=== PATIENT | female | born 1970 | race African-American/Black ===

== ENCOUNTER 2017-11-01 13:32 | Outpatient (CLI) | payer OTHER | END 2017-11-01 13:33 | disposition home or self-care (01) | LOC: BICULT 13:32 | PROVIDERS: ATTEND Physician Assistant | DX: E07.9 Disorder of thyroid, unspecified (principal); E04.2 Nontoxic multinodular goiter | CPT/HCPCS: 76536 ==

== ENCOUNTER 2017-11-03 14:08 | Outpatient (CLI) | payer OTHER ==
--- NOTE | 2017-11-08 15:01 | MMO ---
BILATERAL SCREENING MAMMOGRAM: Date: 11/03/17 COMPARISON: 03/06/16, 02/20/16. HISTORY: Annual screening exam. This patient's mammogram was interpreted with the assistance of computer-aided detection. FINDINGS: The breasts are heterogeneously dense. On the MLO view of the right breast, in the more inferior portion of the breast is an area of nodular ity, margins of which are partially obscured. Difficult to definitely localize on the CC projection. It could be in the mid or outer portion of the right breast. It does appear slightly different as com pared to the prior exam. There are no suspicious calcifications or other signs of malignancy. Vascula r calcifications are noted. IMPRESSION: BIRADS 0: Incomplete: Need Additional Imaging Evaluation and/or Prior Mammograms for Comparison Further imaging required. In this case, focal spot views of the area marked within the right breast. If this can be substantiated on 2 views, then ultrasound may also be required. The facility will notify patient of need for additional imaging services. POS: MARTINE
== END 2017-11-03 14:09 | disposition home or self-care (01) ==
LOC: SCSMAMMO 14:08
PROVIDERS: ATTEND Physician Assistant
DX: Z12.31 Encounter for screening mammogram for malignant neoplasm of breast (principal)
CPT/HCPCS: 77067

== ENCOUNTER 2017-11-11 13:23 | Outpatient (CLI) | payer OTHER | END 2017-11-11 13:24 | disposition home or self-care (01) | LOC: BICMAMMO 13:23 | PROVIDERS: ATTEND Physician Assistant | DX: N63.10 Unspecified lump in the right breast, unspecified quadrant (principal); Z80.3 Family history of malignant neoplasm of breast | CPT/HCPCS: G0279 ==

== ENCOUNTER 2018-06-08 10:37 | Emergency (ER) | payer OTHER, SELFPAY ==
--- NOTE | 2018-06-08 12:25 | RAD ---
Right hip 2 views HISTORY: Right hip pain. FINDINGS: Mild joint space narrowing, osteophytosis, and subchondral sclerosis. Femoral head contours maintained. More prominent degenerative changes of the right sacroiliac joint. Large amount of stool over the rectum. IMPRESSION: Mild osteoarthritic changes of the right hip. More prominent degenerative changes of the right sacroiliac joint.
--- NOTE | 2018-06-08 12:26 | RAD ---
Right knee 4 views HISTORY: Right knee pain. FINDINGS: Joint spaces are preserved. Mild osteophytosis of the medial compartment. No acute fracture , dislocation, or fluid distention of the suprapatellar bursa. IMPRESSION: Mild degenerative changes. No acute osseous abnormalities are noted.
[2018-06-08] MEDS ORDERED: Ketorolac Tromethamine 60 MG/2 ML VIAL ONE (13:56)
== END 2018-06-08 16:36 | disposition home or self-care (01) ==
LOC: ERS 10:37
DX: M25.561 Pain in right knee (principal); M25.551 Pain in right hip; I10 Essential (primary) hypertension; Z79.899 Other long term (current) drug therapy
CPT/HCPCS: 96372; J1885

== ENCOUNTER 2018-07-11 08:21 | Outpatient (CLI) | payer OTHER ==
--- NOTE | 2018-07-11 12:08 | MRI ---
RIGHT KNEE MRI WITHOUT IV CONTRAST: HISTORY: Right knee pain, tear of medial meniscus right knee. FINDINGS: Multiplanar, multisequence MRI examination of the right knee is performed. Very large body habitus l owers the sensitivity of this study. Marked cartilage loss involving the patellar cartilage includin g the central and lateral patellar facet with some subchondral cystic changes. Moderate lateral messer llar subluxation. Lateral trochlear groove, cartilage loss. The medial and lateral menisci, anterio r and posterior cruciate ligaments, collateral ligament complexes, and quadriceps and patellar tendon s appear intact. No abnormal joint effusion. No abnormal marrow signal. No significant osteochondr al defect. IMPRESSION: Marked patellar cartilage loss with some subchondral cystic changes as well as cartilage loss of the lateral trochlear groove with moderate lateral patellar subluxation. No evidence for other significa nt acute internal derangement. Mild cartilage loss of the medial and lateral compartments. POS: [facility]
== END 2018-07-11 08:22 | disposition home or self-care (01) ==
LOC: BICMRI 08:21
PROVIDERS: ATTEND Orthopaedic Surgery
DX: S83.241A Other tear of medial meniscus, current injury, right knee, initial encounter (principal); S83.101A Unspecified subluxation of right knee, initial encounter

== ENCOUNTER 2018-12-19 10:43 | Emergency (ER) | payer OTHER ==
[2018-12-19 12:23] LABS: Bacteria/HPF None Seen HPF (None Seen); Bilirubin Negative (Negative); Blood, Urine 1+ (Negative); Clarity Clear (Clear); Glucose, Urine (Dipstick) Normal (Negative); Leukocyte Negative Leu/uL (Negative); Nitrite Negative (Negative); Protein, Urine (Dipstick) 30 mg/dL (Neg-Trace); Squamous Epithelial 0-3 HPF (0-3); WBC/HPF 0-3 HPF (0-3)
[2018-12-19] MEDS ORDERED: ISOVUE-370 76%-LOCM 1 ML ONE (12:23)
[2018-12-19 12:38] LABS: #Basophils 0.1 thou/uL (0.0-0.2); #Eosinphils 0.1 thou/uL (0.0-0.7); #Lymphocytes 2.4 thou/uL (1.20-3.40); #Monocytes 0.3 thou/uL (0.11-0.59); #Neutrophils 2.6 thou/uL (1.40-6.50); %Basophils 1.3 % (0.0-1.0); %Eosinophils 1.3 % (0.0-10.0); %Lymphocytes 43.8 % (21.0-51.0); %Monocytes 6.2 % (0.0-10.0); %Neutrophils 47.4 % (42.0-75.0); Hemoglobin 12.1 g/dL (12.0-16.0); Mean Corpuscular HGB CONC 30.3 g/dL (32.0-36.0); Mean Corpuscular Hemoglobin 21.5 pg (27.0-31.0); Mean Corpuscular Volume 70.8 fL (78.0-98.0); Mean Platelet Volume 9.9 fL (7.4-10.4); Platelet Count 307 thou/uL (130-400); RBC Distribution Width 13.4 % (11.5-14.5); Red Blood Cell (RBC) Count 5.62 mill/uL (4.20-5.40); White Blood Cell (WBC) Count 5.4 thou/uL (4.8-10.8)
[2018-12-19 12:53] LABS: Hypochromia SLIGHT = 6-15 cells (100X) (0-5/hpf); MDiff Complete? YES; Microcytosis SLIGHT = 6-15 cells (100X) (0-5/hpf); Ovalocytes SLIGHT = 2-5 cells (100X) (0-1/hpf); Platelet Morphology Comment Appears Adequate; Polychromasia SLIGHT = 2-3 cells (100X) (0-2/hpf)
[2018-12-19 13:01] LABS: ALT (SGPT) Less than 7 U/L (8-55); AST (SGOT) 9 U/L (5-34); Alkaline Phosphatase 61 U/L (40-110); Anion Gap 9 mmol/L (10-20); BUN (Urea Nitrogen) 13 mg/dL (7.0-18.7); Bilirubin, Total 0.8 mg/dL (0.2-1.2); Calc. Creatinine Clearance 0 mL/min (70-130); Calcium 9.1 mg/dL (7.8-10.44); Carbon Dioxide 29 mmol/L (22-29); Chloride 103 mmol/L (98-107); Estimated GFR-MDRD 86; Globulin 3.7 g/dL (2.4-3.5); Glucose 99 mg/dL (70-105); Lipase Less than 4 U/L (8-78); Potassium 3.2 mmol/L (3.5-5.1); Protein, Total 7.7 g/dL (6.0-8.3); Sodium 138 mmol/L (136-145)
[2018-12-19] MEDS ORDERED: Ketorolac Tromethamine 30 MG/ML VIAL ONE (13:06)
[2018-12-19 13:50] LABS: BHCG - Serum Negative (NEGATIVE); Pregs Control Background? CLEAR/WHITE (CLR/WHITE); Pregs Control Bar Appear? YES (CONTROL BAR)
--- NOTE | 2018-12-19 14:15 | CT ---
CT Abdomen Pelvis W Con History: Right lower quadrant pain Comparison: None. Findings: Lung bases are clear. No pericardial effusion. The aortoiliac contour is nonaneurysmal. No dilated loops of large or small bowel. No hydronephrosis. Adrenal glands are unremarkable. Celiac trunk and superior mesenteric arteries are patent. The gallbladder, liver, spleen are unremarkable. No retroperitoneal periaortic adenopathy. There is s clerosis of both SI joints, asymmetric and worse on the right. Severe facet arthrosis L5/S1. Posterior disc osteophyte complex at T12/L1 causes mild narrowing of the spinal canal. Impression: No acute process within the abdomen or pelvis.
[2018-12-19] MEDS ORDERED: Dexamethasone 4 mg/ml Vial ONE (15:00)
[2018-12-19] MEDS ORDERED: Potassium Chloride 20 MEQ TAB ONE (15:02)
== END 2018-12-19 15:38 | disposition home or self-care (01) ==
LOC: ERS 10:43
DX: M19.90 Unspecified osteoarthritis, unspecified site (principal); I10 Essential (primary) hypertension
CPT/HCPCS: 36415; 74177; 80053; 81003; 81015; 83605; 83690; 84703; 85025; 96372; 96374; 96375; J0500; J1100; J1885; Q9966

== ENCOUNTER 2018-12-30 08:42 | Outpatient (CLI) | payer OTHER ==
--- NOTE | 2018-12-30 09:41 | MMO ---
Bilateral MAMMO Bilat Screen [facility]. CLINICAL HISTORY: Patient is 48 years old and is seen for screening. The patient has the following family history of breast cancer: mother, at age 36. The patient has no personal history of cancer. VIEWS: The views performed were: bilateral craniocaudal with tomosynthesis and bilateral mediolateral oblique with tomosynthesis. FILMS COMPARED: The present examination has been compared to prior imaging studies performed at [facility] on 06/07/2013, and at [facility] on 02/20/2016, 03/06/2016 and 11/11/2017. This study has been interpreted with the assistance of computer-aided detection. MAMMOGRAM FINDINGS: There are scattered fibroglandular densities. There are vascular calcifications seen in both breasts. There are no suspicious masses, suspicious calcifications, or new areas of architectural distortion. IMPRESSION: A ROUTINE FOLLOW-UP MAMMOGRAM IN 1 YEAR IS RECOMMENDED. THE RESULTS OF THIS EXAM WERE SENT TO THE PATIENT. ACR BI-RADS Category 2 - Benign finding MAMMOGRAPHY NOTE: 1. A negative mammogram report should not delay a biopsy if a dominant of clinically suspicious mass is present. 2. Approximately 10% to 15% of breast cancers are not detected by mammography. 3. Adenosis and dense breasts may obscure an underlying neoplasm. Reported by: JORDI JULIAN MD Electonically Signed: [id number]
== END 2018-12-30 08:43 | disposition home or self-care (01) ==
LOC: BICMAMMO 08:42
PROVIDERS: ATTEND Physician Assistant
DX: Z12.31 Encounter for screening mammogram for malignant neoplasm of breast (principal); Z80.3 Family history of malignant neoplasm of breast
CPT/HCPCS: 77063; 77067

== ENCOUNTER 2019-01-10 08:08 | Outpatient (CLI) | payer OTHER ==
--- NOTE | 2019-01-10 09:48 | ULT ---
THYROID ULTRASOUND: HISTORY: Thyroid nodules. Follow-up exam. COMPARISON: 11/12/2016 FINDINGS: Thyroid isthmus: 0.42 cm Right thyroid lobe: 1.6 x 1.9 x 4.8 cm Left thyroid lobe: 1.3 x 1.7 x 4.7 cm Nodules: Right lobe: Complex solid nodule with flows in the mid pole measuring 1.1 x 1.2 x 0.7 cm. Cystic nodu le with solid components in the lower pole measuring 0.8 x 0.5 x 0.8 cm Left lobe: Cystic nodule with a small solid component in the mid pole measuring 0.3 x 0.2 x 0.3 cm. S olid nodule with vascularity in the lower pole measuring 0.4 x 0.9 x 1.0 cm. Incidental soft tissue echotexture lesion adjacent to the superior pole of the right thyroid lobe christina suring 2.0 x 1.0 x 0.5 cm. IMPRESSION: 1. Multiple thyroid nodules. Solid nodules in the left and right thyroid lobe have a TI-RADS calculat or score of TR3, mildly suspicious. Follow-up imaging in one year is recommended. 2. With regard to the solid echotexture focus adjacent to the right thyroid lobe, non-emergent post c ontrast soft tissue neck CT is recommended. CODE T Transcribed Date/Time: 01/10/2019 9:56 AM
== END 2019-01-10 08:09 | disposition home or self-care (01) ==
LOC: SCSULT 08:08
PROVIDERS: ATTEND Physician Assistant
DX: R93.89 Abnormal findings on diagnostic imaging of other specified body structures (principal); E04.2 Nontoxic multinodular goiter
CPT/HCPCS: 76536

== ENCOUNTER 2019-02-08 19:30 | Outpatient (CLI) | payer OTHER | END 2019-02-08 19:31 | disposition home or self-care (01) | LOC: SLEEPLAB 19:30 | PROVIDERS: ATTEND Physician Assistant | DX: R06.83 Snoring (principal); R40.0 Somnolence; R35.1 Nocturia; I10 Essential (primary) hypertension; K21.9 Gastro-esophageal reflux disease without esophagitis; E66.9 Obesity, unspecified; R53.83 Other fatigue; R09.89 Other specified symptoms and signs involving the circulatory and respiratory systems; G47.00 Insomnia, unspecified; G47.61 Periodic limb movement disorder; Z68.41 Body mass index [BMI] 40.0-44.9, adult | CPT/HCPCS: 95810 ==

== ENCOUNTER 2020-02-01 14:17 | Outpatient (CLI) | payer OTHER ==
--- NOTE | 2020-02-01 16:08 | MMO ---
Bilateral MAMMO Bilat Screen [facility]. CLINICAL HISTORY: Patient is 49 years old and is seen for screening. The patient has the following family history of breast cancer: mother, at age 36. The patient has no personal history of cancer. VIEWS: The views performed were: bilateral craniocaudal and bilateral mediolateral oblique. FILMS COMPARED: The present examination has been compared to prior imaging studies performed at [facility] on 02/20/2016, 03/06/2016, 11/11/2017 and 12/30/2018. This study has been interpreted with the assistance of computer-aided detection. MAMMOGRAM FINDINGS: There are scattered fibroglandular densities. There are stable benign appearing densities seen in both breasts. There are no suspicious masses, suspicious calcifications, or new areas of architectural distortion. IMPRESSION: THERE IS NO MAMMOGRAPHIC EVIDENCE OF MALIGNANCY. A ROUTINE FOLLOW-UP MAMMOGRAM IN 1 YEAR IS RECOMMENDED. ACR BI-RADS Category 2 - Benign finding MAMMOGRAPHY NOTE: 1. A negative mammogram report should not delay a biopsy if a dominant of clinically suspicious mass is present. 2. Approximately 10% to 15% of breast cancers are not detected by mammography. 3. Adenosis and dense breasts may obscure an underlying neoplasm. Reported by: ERYN DU MD Electonically Signed: [id number]
== END 2020-02-01 14:18 | disposition home or self-care (01) ==
LOC: BICMAMMO 14:17
PROVIDERS: ATTEND Physician Assistant
DX: Z12.31 Encounter for screening mammogram for malignant neoplasm of breast (principal); Z80.3 Family history of malignant neoplasm of breast
CPT/HCPCS: 77067